=== PATIENT | male | born 1965 | race Hispanic/Latino ===

== ENCOUNTER 2019-06-28 02:00 | Emergency (ER) | payer OTHER ==
[2019-06-28] MEDS ORDERED: NA CHLORIDE 0.9% 0 ML ONE (02:38)
[2019-06-28] MEDS ORDERED: ONDANSETRON 4 MG/2 ML VIAL ONE (02:38)
[2019-06-28 03:01] LABS: Absolute Lymphocytes (CBC) 0.4 K/uL (0.7-4.9); Basophils % 0.4 % (0-1.3); Hematocrit 43.2 % (39.6-49.0); Lymphocytes % 5.9 % (15.3-44.8); MPV 7.2 fL (7.6-11.3); RBC Red Blood Cell Count 4.76 M/uL (4.33-5.43)
[2019-06-28 03:22] LABS: Albumin 3.8 g/dL (3.4-5.0); Bilirubin Direct 0.2 mg/dL (0-0.2); Bilirubin Total 0.8 mg/dL (0.2-1.0); Potassium 3.4 mmol/L (3.5-5.1); Protein, Total 7.2 g/dL (6.4-8.2)
[2019-06-28 03:56] LABS: Blood Morphology Comment NOT SEEN (NOT SEEN); Platelet Estimate ADEQ; Urine White Blood Cell Casts OK
[2019-06-28] MEDS ORDERED: NA CHLORIDE 0.9% 1,000 ML ONE (04:21)
--- NOTE | 2019-06-28 04:25 | ER ---
Nurse's Notes [facility] Name: Rubén Donis Age: 53 yrs Sex: Male : 1965 Arrival Date: 06/28/2019 Time: 02:01 Bed 18 Private MD: Diagnosis: Nausea with vomiting, unspecified;Diarrhea, unspecified;Dehydration;Acute kidney failure, unspecified Presentation: 06/28 02:08 Presenting complaint: Patient states: Nausea, vomiting and diarrhea that started Thursday wh night. Accompanied with chills and body aches. Pt states He took Advil and it helped a little bit but he is still not feeling good and he cant sleep with the abdominal pain. Transition of care: patient was not received from another setting of care. Onset of symptoms was June 26, 2019. Risk Assessment: Do you want to hurt yourself or someone else? Patient reports no desire to harm self or others. Initial Sepsis Screen: Does the patient meet any 2 criteria? HR > 90 bpm. Does the patient have a suspected source of infection? Yes: Acute abdominal pain. Care prior to arrival: None. 02:08 Method Of Arrival: Ambulatory 02:08 Acuity: MIRLNADE 3 Historical: - Allergies: 02:13 No Known Allergies; - Home Meds: 02:13 None [Active]; - PMHx: 02:13 None; - PSHx: 02:13 None; - Immunization history:: Adult Immunizations up to date. - Social history:: Smoking status: Patient/guardian denies using tobacco. - Ebola Screening: : Patient negative for fever greater than or equal to 101.5 degrees Fahrenheit, and additional compatible Ebola Virus Disease symptoms Patient denies exposure to infectious person. Screenin:13 Abuse screen: Denies threats or abuse. Denies injuries from another. Nutritional screening: No deficits noted. Tuberculosis screening: No symptoms or risk factors identified. Fall Risk None identified. Assessment: 02:14 General: Appears in no apparent distress. Behavior is calm, cooperative, appropriate for age. Pain: Complains of pain in abdomen Pain does not radiate. Pain currently is 4 out of 10 on a pain scale. Quality of pain is described as crampy, Pain began 2-3 days ago. Neuro: Level of Consciousness is awake, alert, obeys commands, Oriented to person, place, time, situation, Appropriate for age. Cardiovascular: Heart tones S1 S2. Respiratory: Airway is patent Respiratory effort is even, unlabored, Respiratory pattern is regular, symmetrical. GI: Abdomen is flat, non-distended, Bowel sounds present X 4 quads. Abd is soft. GI: Reports diarrhea, nausea, vomiting. : No signs and/or symptoms were reported regarding the genitourinary system. EENT: No signs and/or symptoms were reported regarding the EENT system. Derm: Skin is intact, is healthy with good turgor, Skin is pink, warm \T\ dry. normal. Musculoskeletal: Circulation, motion, and sensation intact. 03:43 Reassessment: Patient appears in no apparent distress at this time. No changes from previously documented assessment. Patient and/or family updated on plan of care and expected duration. Pain level reassessed. Patient is alert, oriented x 3, equal unlabored respirations, skin warm/dry/pink. Pt sleeping Patient states feeling better. Patient states symptoms have improved. 04:30 Reassessment: Patient appears in no apparent distress at this time. No changes from previously documented assessment. Patient and/or family updated on plan of care and expected duration. Pain level reassessed. Patient is alert, oriented x 3, equal unlabored respirations, skin warm/dry/pink. Patient states feeling better. Patient states symptoms have improved. Vital Signs: 02:12 BP 119 / 85; Pulse 119; Resp 18; Temp 100.2; Pulse Ox 98% on R/A; Weight 83.91 kg; Height 5 ft. 9 in. (175.26 cm); 03:44 BP 144 / 85; Pulse 106; Resp 18; Pulse Ox 95% on R/A; wh 04:30 BP 133 / 88; Pulse 109; Resp 18; Pulse Ox 96% on R/A; 02:12 Body Mass Index 27.32 (83.91 kg, 175.26 cm) ED Course: 02:01 Patient arrived in ED. ds1 02:08 Keith Presley is Primary Nurse. 02:12 Triage completed. 02:13 Arm band placed on right wrist. 02:14 Patient has correct armband on for positive identification. Bed in low position. Call light in reach. Side rails up X 1. Pulse ox on. NIBP on. 02:23 Junito Quezada MD is Attending Physician. tw4 02:40 Inserted saline lock: 20 gauge in right antecubital area, using aseptic technique. Blood collected. 04:31 No provider procedures requiring assistance completed. IV discontinued, intact, bleeding controlled, No redness/swelling at site. Administered Medications: 02:45 Drug: Zofran 4 mg Route: IVP; Site: right antecubital; 03:56 Follow up: Response: No adverse reaction; Nausea is decreased 02:50 Drug: NS 0.9% 1000 ml Route: IV; Rate: 1 bolus; Site: right antecubital; 03:56 Follow up: IV Status: Completed infusion 04:30 Not Given (Patient Refused): NS 0.9% 1000 ml IV at 1 bolus Per protocol; 1000 mL bolus Outcome: 04:24 Discharge ordered by . tw4 04:31 Discharged to home ambulatory, with family. 04:31 Condition: stable 04:31 Discharge instructions given to patient, family, Instructed on discharge instructions, follow up and referral plans. medication usage, POC Diarrhea, Nausea and vomiting Demonstrated understanding of instructions, follow-up care, medications, POC Prescriptions given X 2. 04:32 Patient left the ED. Signatures: Tova Tucker ds1 Keith Presley Junito Quezada MD MD tw4
--- NOTE | 2019-06-28 04:26 | EDPHYS ---
Physician Documentation [facility] Name: Rubén Donis Age: 53 yrs Sex: Male : 1965 Arrival Date: 06/28/2019 Time: 02:01 Bed 18 Private MD: ED Physician Junito Quezada HPI: 06/28 03:10 This 53 yrs old Male presents to ER via Ambulatory with complaints of tw4 Abdominal Pain, Vomiting. 03:10 The patient presents to the emergency department with nausea, vomiting, diarrhea, tw4 abdominal pain. Onset: The symptoms/episode began/occurred 2 day(s) ago. Possible causes: sick contacts, by family, . The symptoms are aggravated by nothing. The symptoms are alleviated by nothing. Associated signs and symptoms: The patient has no apparent associated signs or symptoms. Severity of symptoms: At their worst the symptoms were moderate in the emergency department the symptoms are unchanged. The patient has not experienced similar symptoms in the past. Historical: - Allergies: 02:13 No Known Allergies; - Home Meds: 02:13 None [Active]; - PMHx: 02:13 None; - PSHx: 02:13 None; - Immunization history:: Adult Immunizations up to date. - Social history:: Smoking status: Patient/guardian denies using tobacco. - Ebola Screening: : Patient negative for fever greater than or equal to 101.5 degrees Fahrenheit, and additional compatible Ebola Virus Disease symptoms Patient denies exposure to infectious person. ROS: 03:10 Constitutional: Negative for fever, chills, and weight loss, Eyes: Negative for injury, tw4 pain, redness, and discharge, Cardiovascular: Negative for chest pain, palpitations, and edema, Respiratory: Negative for shortness of breath, cough, wheezing, and pleuritic chest pain, Back: Negative for injury and pain. 03:10 Skin: Negative for injury, rash, and discoloration, Neuro: Negative for headache, weakness, numbness, tingling, and seizure. 03:10 Abdomen/GI: Positive for abdominal pain, nausea and vomiting, nausea, vomiting, and diarrhea, nausea, vomiting. Exam: 03:10 Constitutional: This is a well developed, well nourished patient who is awake, alert, tw4 and in no acute distress. Head/Face: Normocephalic, atraumatic. Chest/axilla: Normal chest wall appearance and motion. Nontender with no deformity. No lesions are appreciated. Cardiovascular: Regular rate and rhythm with a normal S1 and S2. No gallops, murmurs, or rubs. Normal PMI, no JVD. No pulse deficits. Respiratory: Lungs have equal breath sounds bilaterally, clear to auscultation and percussion. No rales, rhonchi or wheezes noted. No increased work of breathing, no retractions or nasal flaring. Back: No spinal tenderness. No costovertebral tenderness. Full range of motion. MS/ Extremity: Pulses equal, no cyanosis. Neurovascular intact. Full, normal range of motion. Neuro: Awake and alert, GCS 15, oriented to person, place, time, and situation. Cranial nerves II-XII grossly intact. Motor strength 5/5 in all extremities. Sensory grossly intact. Cerebellar exam normal. Normal gait. 03:10 Abdomen/GI: Inspection: abdomen appears normal, Bowel sounds: normal, Palpation: moderate abdominal tenderness, in the right upper quadrant, left upper quadrant, right lower quadrant and left lower quadrant. Vital Signs: 02:12 BP 119 / 85; Pulse 119; Resp 18; Temp 100.2; Pulse Ox 98% on R/A; Weight 83.91 kg; wh Height 5 ft. 9 in. (175.26 cm); 03:44 BP 144 / 85; Pulse 106; Resp 18; Pulse Ox 95% on R/A; 04:30 BP 133 / 88; Pulse 109; Resp 18; Pulse Ox 96% on R/A; 02:12 Body Mass Index 27.32 (83.91 kg, 175.26 cm) MDM: 02:35 Patient medically screened. tw4 04:21 Differential diagnosis: Nonspecific abd pain, gastritis. Data reviewed: vital signs, tw4 nurses notes. Data reviewed: lab test result(s), CBC, white blood cell count, hemoglobin, hematocrit, platelets, electrolytes, sodium, potassium, chloride, serum bicarbonate, BUN, creatinine, serum glucose. Data interpreted: Pulse oximetry: Interpretation: normal. Counseling: I had a detailed discussion with the patient and/or guardian regarding: the historical points, exam findings, and any diagnostic results supporting the discharge/admit diagnosis, lab results. Medication response: Zofran relieved the patient's nausea. Response to treatment: the patient's symptoms have resolved after treatment, and as a result, I will discharge patient. Refusal of service: The patient/guardian displays adequate decision making capability and despite a detailed discussion of alternatives, benefits, risks, and consequences refuses: all lab tests, wanted to continue hydrate patient and repeat labs. Elevated creatinine most likely pre renal. Special discussion: Based on the patient's Hx, exam, and Dx evaluation, there is no indication for emergent surgery or inpatient Tx. It is understood by the patient/guardian that if the Sx's persist or worsen they need to return immediately for re-evaluation. I discussed with the patient/guardian in detail that at this point there is no indication for admission to the hospital. It is understood, however, that if the symptoms persist or worsen the patient needs to return immediately for re-evaluation. 06/28 02:35 Order name: Basic Metabolic Panel; Complete Time: 04:05 tw4 06/28 04:06 Interpretation: Normal except: K 3.4; GLUC 153; CO2 19; CL 108; CRE 1.59; GFR 46. tw06/28 02:35 Order name: CBC with Diff; Complete Time: 04:05 tw4 06/28 04:06 Interpretation: Normal except: MPV 7.2; LYM% 5.9; BETHEL% 89.7. 06/28 02:35 Order name: Creatinine for Radiology; Complete Time: 04:05 tw4 06/28 04:06 Interpretation: Normal except: CRE 1.55; GFR 47. tw4 06/28 02:35 Order name: Hepatic Function; Complete Time: 04:05 tw4 06/28 04:06 Interpretation: Within normal limits. tw06/28 02:35 Order name: Lipase; Complete Time: 04:05 tw4 06/28 04:06 Interpretation: Abnormal: LIP 59. 06/28 03:56 Order name: CBC Smear Scan; Complete Time: 04:05 EDGA 06/28 02:35 Order name: IV Saline Lock; Complete Time: 02:50 tw4 06/28 02:35 Order name: Labs collected and sent; Complete Time: 02:50 tw4 Administered Medications: 02:45 Drug: Zofran 4 mg Route: IVP; Site: right antecubital; 03:56 Follow up: Response: No adverse reaction; Nausea is decreased 02:50 Drug: NS 0.9% 1000 ml Route: IV; Rate: 1 bolus; Site: right antecubital; 03:56 Follow up: IV Status: Completed infusion 04:30 Not Given (Patient Refused): NS 0.9% 1000 ml IV at 1 bolus Per protocol; 1000 mL bolus Disposition: 06/28/19 04:24 Discharged to Home. Impression: Nausea with vomiting, unspecified, Diarrhea, unspecified, Dehydration, Acute kidney failure, unspecified. - Condition is Stable. - Discharge Instructions: Food Choices to Help Relieve Diarrhea, Adult, Dehydration, Adult, Diarrhea, Adult, Nausea and Vomiting, Adult. - Prescriptions for Zofran 4 mg Oral Tablet - take 1 tablet by ORAL route every 12 hours As needed; 6 tablet. Lomotil 2.5- 0.025 mg Oral Tablet - take 2 tablet by ORAL route once daily As needed; 20 tablet. - Medication Reconciliation Form, Thank You Letter, Antibiotic Education, Prescription Opioid Use form. - Follow up: Private Physician; When: Upon discharge from the Emergency Department; Reason: Recheck today's complaints, Continuance of care. - Problem is new. - Symptoms have improved. Signatures: Dispatcher [employer] EDMS Keith Presley wh Junito Quezada MD MD tw4 Corrections: (The following items were deleted from the chart) 04:32 04:24 06/28/2019 04:24 Discharged to Home. Impression: Nausea with vomiting, wh unspecified; Diarrhea, unspecified; Dehydration; Acute kidney failure, unspecified. Condition is Stable. Forms are Medication Reconciliation Form, Thank You Letter, Antibiotic Education, Prescription Opioid Use. Follow up: Private Physician; When: Upon discharge from the Emergency Department; Reason: Recheck today's complaints, Continuance of care. Problem is new. Symptoms have improved. tw4
[2019-06-28 04:42] VITALS: TEMP 100.2
[2019-06-28 04:44] VITALS: BP 133/88; O2SAT 96
== END 2019-06-28 04:32 | disposition home or self-care (01) ==
LOC: ER 02:00
DX: N17.9 Acute kidney failure, unspecified (principal); R11.2 Nausea with vomiting, unspecified; R19.7 Diarrhea, unspecified; E86.0 Dehydration
CPT/HCPCS: 96361; 85025; 80048; 36415; 80076; 83690; 96374; 99284; J7030; J2405

== ENCOUNTER 2021-01-17 08:29 | Day surgery (SDC) | payer OTHER ==
[2021-01-15 14:22] LABS: Absolute Lymphocytes (CBC) 1.6 K/uL (0.7-4.9); Basophils % 0.6 % (0-1.3); Hematocrit 42.8 % (39.6-49.0); Lymphocytes % 31.3 % (15.3-44.8); MPV 7.6 fL (7.6-11.3); RBC Red Blood Cell Count 4.72 M/uL (4.33-5.43)
[2021-01-15 14:29] LABS: Protime INR 0.97
--- NOTE | 2021-01-15 14:32 | RAD REPORT ---
EXAM DESCRIPTION: Christofer Bonilla (2 Views)01/15/2021 2:23 pm CLINICAL HISTORY: Preop for cardiac catheterization. Abnormal stress test COMPARISON: None FINDINGS: The lungs appear clear of acute infiltrate. The heart is normal size IMPRESSION: No acute abnormalities displayed
[2021-01-15 14:38] LABS: Potassium 3.9 mmol/L (3.5-5.1)
--- NOTE | 2021-01-16 08:44 | EKG ---
Test Date: 2021-01-15 Test Time: 12:59:11 Pressure Tester Operator: TG MEASUREMENT RESULTS: Intervals: Rate: 74 MS: 148 QRSD: 72 QT: 346 QTc: 384 [place]: P: 64 MS: 148 QRS: 49 T: -71 INTERPRETIVE STATEMENTS: Normal sinus rhythm Cannot rule out Anterior infarct, age undetermined Abnormal ECG No previous ECG available for comparison Electronically Signed On 01-16-21 08:41:40 CDT by Talon Gregg
[2021-01-17] MEDS ORDERED: NA CHLORIDE 0.9% 500 ML ONE (08:51)
[2021-01-17] MEDS ORDERED: LIDOCAINE 1% 20 ML MDV ONE (09:09)
[2021-01-17] MEDS ORDERED: HEPA 1000U/500MLS 1,000 UNIT/500 ML BAG IV ONE (09:09)
[2021-01-17] MEDS ORDERED: MIDAZOLAM HCL 2 MG/2 ML INJ ONE (09:16)
[2021-01-17] MEDS ORDERED: FENTANYL CITR 100 MCG/2 ML ONE (09:16)
[2021-01-17] MEDS ORDERED: NA CHLORIDE 0.9% 0 ML ONE (09:17)
[2021-01-17] MEDS ORDERED: ATROPINE SULF 1 MG/10 ML SYR IV ONE (09:17)
[2021-01-17 10:38] VITALS: TEMP 97.5
[2021-01-17 11:10] VITALS: BP 114/82; O2SAT 100
--- NOTE | 2021-01-17 13:13 | OP ---
Surgeon: Talon Gregg MD Clinic Office Coordinator: Abram Norris. The patient will remain at bedrest for 2 hours after the Angio-Seal. He will go home after that. Co ntinue home medication. I will see him in the office in the next 2 weeks. Procedure: Admitted to my service for heart catheterization and selective coronary arteriogram on . Indication: Abnormal stress test. Procedure In Detail: The patient was brought to the rn labor delivery, prepped and draped in routine sterile fashion. Given Versed and fentanyl for sedation. Using the Seldinger technique and 10 mL of Xylocai ne, a 6-Nepali sheath was introduced in the right common femoral artery successfully. Angiography th ere was normal. Angio-Seal was used to close the case. Mel catheters left and right were used t o do the heart catheterization. He had a normal left main, normal LAD, normal coronaries, normal RCA . LV-gram was not done. The patient tolerated the procedure well. There were no complications. Blood Loss: 5 mL. Anesthesia: Total conscious sedation was 45 minutes. Postoperative Diagnoses: Abnormal stress test, normal coronaries. Plan: To continue medical therapy. NB/MODL Voice ID: [id number] Report ID: [id number]
== END 2021-01-17 11:35 | disposition home or self-care (01) ==
LOC: CCL 08:29
DX: R94.39 Abnormal result of other cardiovascular function study (principal); Z20.822 Contact with and (suspected) exposure to COVID-19; Z82.49 Family history of ischemic heart disease and other diseases of the circulatory system
CPT/HCPCS: 93005; 85025; 80048; 36415; 85610; 85730; 71046; 93454; U0003; C1893; C1760; J2250; J3010; J7040; J1644; J0583